=== PATIENT | male | born 1960 | race Caucasian/White ===

== ENCOUNTER 2023-08-07 09:07 | Outpatient (CLI) | payer MEDICARE | END 2023-08-07 09:08 | disposition home or self-care (01) | LOC: SCSMRI 09:07 | PROVIDERS: ATTEND Orthopaedic Surgery | DX: M47.26 Other spondylosis with radiculopathy, lumbar region (principal); M54.50 Low back pain, unspecified; M51.16 Intervertebral disc disorders with radiculopathy, lumbar region | CPT/HCPCS: 72148 ==